=== PATIENT | male | born 1955 | race Caucasian/White ===

== ENCOUNTER 2019-04-06 10:11 | Emergency (ER) | payer MEDICARE, BC ==
[~2019-04-06] VITALS: Ht 180.3 cm; Wt 67.3 kg
[2019-04-06] MEDS ORDERED: proparacaine 0.5% ophthalmic drops 15ml EACHEYE ONE (10:20)
[2019-04-06 10:53] VITALS: BP 119/68
--- NOTE | 2019-04-06 10:54 | NUR ---
PT IS IN BED AWAITING MD RETURN, HE HAS NO NEEDS AT THIS TIME
[2019-04-06] MEDS ORDERED: HYDR-3965 PO (11:09)
[2019-04-06] MEDS ORDERED: VIG0.5OS LEFTEYE (11:09)
== END 2019-04-06 11:30 | disposition home or self-care (01) ==
LOC: ER 10:13
DX: T15.02XA Foreign body in cornea, left eye, initial encounter (principal); Z79.2 Long term (current) use of antibiotics; Z79.899 Other long term (current) drug therapy; X58.XXXA Exposure to other specified factors, initial encounter; Y93.89 Activity, other specified; Y92.89 Other specified places as the place of occurrence of the external cause; Y99.8 Other external cause status
CPT/HCPCS: 99283